=== PATIENT | female | born 1965 | race Caucasian/White ===

== ENCOUNTER → 2019-02-14 | Outpatient (CLI) | payer OTHER | LOC: CAT 08:48 | DX: J43.2 Centrilobular emphysema (principal); J84.9 Interstitial pulmonary disease, unspecified; J98.11 Atelectasis; R51 Headache; R91.8 Other nonspecific abnormal finding of lung field; R59.9 Enlarged lymph nodes, unspecified ==

== ENCOUNTER 2019-04-01 23:51 | Inpatient (IN) | payer OTHER ==
[~2019-04-01] VITALS: Ht 170.2 cm; Wt 73.9 kg
[2019-04-01 23:56] VITALS: BP 117/79
[2019-04-02] MEDS ORDERED: LYRICA 75 MG CA75 MG PO (00:08)
[2019-04-02] MEDS ORDERED: NORTRIPTYLINE H50 M3 PO (00:08)
[2019-04-02] MEDS ORDERED: AMARYL4 MG PO (00:08)
[2019-04-02] MEDS ORDERED: METFORMIN HCL500 M2 PO (00:09)
[2019-04-02] MEDS ORDERED: [UNRECOGNIZED DRUG - OTHER] (00:12)
[2019-04-02] MEDS ORDERED: SYNTHROID125 MC1 PO (00:13)
[2019-04-02] MEDS ORDERED: UNICOMPLEX M TA1 TA1 PO (00:14)
[2019-04-02 00:22] LABS: ABSOLUTE NEUTROPHILS 6.7 thou/uL (1.4-8.2); BASOPHILS 0.8 % (0.0-2.0); EOSINOPHILS 3.4 % (0.0-3.0); LYMPHOCYTES 28.6 % (24.0-44.0); MCH 28.2 pg (26.0-34.0); MCHC 33.5 g/dL (28.0-37.0); MCV 84.3 fL (80.0-100.0); MONOCYTES 5.6 % (1.0-8.0); PLATELET COUNT 293 thou/uL (150-400); POLYS 61.6 % (36.0-66.0); RBC 4.27 mil/uL (4.20-5.00); RDW 15.3 % (10.5-14.5); WBC 10.9 thou/uL (4.0-11.0)
[2019-04-02 00:28] LABS: ANION GAP 11 mmol/L (7-16); BUN 12 mg/dL (7-18); CALCIUM 9.5 mg/dL (8.5-10.1); CHLORIDE 101 mmol/L (98-107); CO2 25 mmol/L (21-32); CREATININE 0.9 mg/dL (0.6-1.0); GLUCOSE 178 mg/dL (74-106); POTASSIUM 3.7 mmol/L (3.5-5.1); SODIUM 137 mmol/L (136-145)
[2019-04-02 00:38] LABS: ALBUMIN 3.7 g/dL (3.4-5.0); SGOT 42 U/L (15-37); SGPT 45 U/L (30-65); TOTAL BILIRUBIN 0.6 mg/dL (<0.1-1.0); TOTAL PROTEIN 8.4 g/dL (6.4-8.2); TROPONIN-I <0.06 ng/mL (<0.06)
[2019-04-02 03:40] VITALS: BP 96/55
[2019-04-02] MEDS ORDERED: LIPITOR10 MG PO (03:53)
[2019-04-02 04:30] VITALS: BP 95/65
[2019-04-02 06:52] LABS: ANION GAP 11 mmol/L (7-16); BUN 11 mg/dL (7-18); CALCIUM 9.3 mg/dL (8.5-10.1); CHLORIDE 103 mmol/L (98-107); CHOLESTEROL 86 mg/dL (<200); CO2 24 mmol/L (21-32); CREATININE 0.9 mg/dL (0.6-1.0); GLUCOSE 96 mg/dL (74-106); HDL CHOLESTEROL 17 mg/dL (>40); LDL CHOLESTEROL 39 mg/dL (<100); POTASSIUM 3.9 mmol/L (3.5-5.1); SODIUM 138 mmol/L (136-145); TC:HDL 5.1 Ratio (Not establshd); TRIGLYCERIDE 153 mg/dL (<150); TROPONIN-I <0.06 ng/mL (<0.06); VLDL 31 mg/dL (<40)
--- NOTE | 2019-04-02 07:12 | NUR ---
ADMITTED FROM ER UNDER 'S CARE. AXOX4. ACCOMPANIED BY FRIEND. ADMIT WITH CHEST PAIN, HOWEVER PT DENIES CHEST PAIN UPON ARRIVAL FROM ER. SEEN BY CARLITA CARPENTER DOUGH CATCHER FOR . NO S/S ACUTE DISTRESS NOTED OR REPORTED AT THIS TIME.
[2019-04-02 07:37] VITALS: BP 85/53
--- NOTE | 2019-04-02 09:21 | EKG ---
[address] [place] [address] ELECTROCARDIOGRAM REPORT Name: DIYASUMAMONICA L Room #: 464-P [facility] IN M.R.#: [id number] ������������������ Admission: 04/02/19 ������������������ Attend Phys: Leonardo Gonzalez Discharge: ������������������ Date of : 69 Report #: [id number] ����������������������������������������������������������������� [id number] THIS REPORT FOR: //name// [facility] ED Test Date: 2019-04-02 Test Time: 00:00:10 Pat Name: MONICA KEANE Department: Room: 464 Gender: F Caretaker Grounds: JL : 1965 Requested By: Ingrid Mullins Order Number: [id number] MD: Harry Garcia Measurements Intervals [place] Rate: 107 P: -9 [place]: 176 QRS: 1 QRSD: 91 T: 43 QT: 364 QTc: 486 Interpretive Statements Sinus tachycardia Borderline prolonged QT interval No previous ECG available for comparison Electronically Signed On 04-02-2019 9:21:14 CDT by Harry Garcia [email or web address] ��������������������������������������������� <ELECTRONICALLY SIGNED> ���������������������������������������� By: Harry Garcia MD, [facility] ��������������������������������������������� 04/02/19 0921 0000 0000 Harry Garcia MD, FACC /EPI
--- NOTE | 2019-04-02 10:54 | 2DMMODE ---
[facility] [address] [address] 2 D/M-MODE ECHOCARDIOGRAM Name: MONICA KEANE Room #: 464-P [facility] IN M.R.#: [id number] ������������� Admission: 04/02/19 ������������� Attend Phys: Leonardo Hi Discharge: ��� ������������� ��� Date of : 69 Date of Service: 04/02/19 1054 �� Report #: [id number] �������� ��������������������������������������������[id number] THIS REPORT FOR: //name// APPROVED REPORT Study performed: 04/02/2019 09:18:49 EXAM: Comprehensive 2D, Doppler, and color-flow Echocardiogram Patient Location: Bedside Room #: 464 Status: routine BSA: 1.84 HR: 98 bpm BP: 85/53 mmHg Rhythm: NSR Other Information Study Quality: Adequate Risk Factors: Cardiac Risk Factors: Hyperlipidemia, DM, Smoking Indications Congestive Heart Failure Dyspnea Chest Pain 2D Dimensions IVSd: 9.01 (7-11mm) LVOT Diam: 19.00 (18-24mm) LVDd: 40.73 mm PWd: 7.99 (7-11mm) Ascending Ao: 28.16 (22-36mm) LVDs: 28.18 (25-40mm) Aortic Root: 27.28 mm LV Single Plane 4CH: 63.48 % LV Single Plane 2CH: 66.91 % Biplane EF: 65.6 % Volumes Left Atrial Volume (Systole) Single Plane 4CH: 25.01 mL Single Plane 2CH: 27.62 mL LA ESV Index: 17.00 mL/m2 Aortic Valve AoV Peak Ramses.: 1.18 m/s [facility] [address] [place] [address] 2 D/M-MODE ECHOCARDIOGRAM Name: MONICA KEANE Room #: 464-P [facility]#: [id number] ������������� Admission: 04/02/19 ������������� Attend Phys: Leonardo Hi Discharge: ��� ������������� ��� Date of : 69 Date of Service: 04/02/19 1054 �� Report #: [id number] �������� ��������������������������������������������[id number] AO Peak Gr.: 5.60 mmHg LVOT Max P.32 mmHg LVOT Max V: 0.91 m/s ALEJANDRO Vmax: 2.12 cm2 Mitral Valve E/A Ratio: 1.5 MV Decel. Time: 193.79 ms MV E Max Ramses.: 0.85 m/s MV A Ramses.: 0.58 m/s MV PHT: 56.20 ms IVRT: 55.36 ms TDI E/Lateral E': 9.44 E/Medial E': 10.63 Medial E' Ramses.: 0.08 m/s Lateral E' Ramses.: 0.09 m/s Pulmonary Valve PV Peak Ramses.: 0.86 m/s PV Peak Gr.: 3.01 mmHg Pulmonary Vein P Vein S: 0.43 m/s P Vein A: 0.24 m/s P Vein D: 0.48 m/s P Vein A Dur.: 69.2 msec P Vein S/D Ratio: 0.90 Tricuspid Valve RAP Estimate: 7.00 mmHg Left Ventricle The left ventricle is normal size. There is normal LV segmental wall motion. There is normal left ventricular wall thickness. Left ventricular systolic function is normal. The left ventricular ejection fraction is within the normal range. LVEF is 60-65%. The left ventricular diastolic function is normal. Right Ventricle The right ventricle is normal size. The right ventricular systolic function is normal. Atria The left atrium size is normal. The right atrium size is normal. Aortic Valve The aortic valve is normal in structure. No aortic regurgitation is present. There is no aortic valvular stenosis. [facility] [address] [place] [address] 2 D/M-MODE ECHOCARDIOGRAM Name: MONICA KEANE Room #: 464-P [facility] IN ..#: [id number] ������������� Admission: 04/02/19 ������������� Attend Phys: Leonardo Hi Discharge: ��� ������������� ��� Date of : 69 Date of Service: 04/02/19 1054 �� Report #: [id number] �������� ��������������������������������������������[id number] Mitral Valve The mitral valve is normal in structure. There is no mitral valve regurgitation noted. No evidence of mitral valve stenosis. Tricuspid Valve The tricuspid valve is normal in structure. Trace tricuspid regurgitation. Unable to assess PA pressure. Pulmonic Valve The pulmonary valve is normal in structure. There is no pulmonic valvular regurgitation. Great Vessels The aortic root is normal in size. IVC is normal in size and collapses >50% with inspiration. Pericardium There is no pericardial effusion. <Conclusion> The left ventricle is normal size. LVEF is 60-65%. The aortic valve is normal in structure. The mitral valve is normal in structure. The tricuspid valve is normal in structure. Trace tricuspid regurgitation. Unable to assess PA pressure. The pulmonary valve is normal in structure. There is no pericardial effusion. ��������������������������������������������� <ELECTRONICALLY SIGNED> ���������������������������������������� By: Shay Hay MD ��������������������������������������������� 04/02/19 1054 1054 1054 Shay Hay MD /INF
[2019-04-02 13:56] VITALS: BP 96/64
--- NOTE | 2019-04-02 20:00 | NUR ---
ASSUMED CARE OF PT AT APPROX 0700. VSS. MONITORED ON TELE. POC FOLLOWED. ASSESSMENT CHARTED. PT REALLY WANTS TO LEAVE. EDUCATED PT ON IMPORTANCE OF TREATMENT, PT STILL NOT HAPPY ABOUT BEING HERE BUT WILL STAY. SAYS SHE WOULD RATHER DO THINGS OUTPATIENT. UPDATED ON POC. NO COMPLAINTS OF CP. MAKING GOOD PROGRESS TOWARDS POC GOALS.
[2019-04-02 20:24] VITALS: BP 108/64
[2019-04-02] MEDS ORDERED: NORCO 5-325 TA1 EACH (20:39)
[2019-04-03 02:08] LABS: GLYCOHEMOGLOBIN (HGB A1C) 5.3 % (4.8-5.6)
[2019-04-03 04:55] VITALS: BP 87/48
[2019-04-03 07:42] VITALS: BP 95/64
--- NOTE | 2019-04-03 07:59 | NUR ---
PT AOX4 AND WAS ABLE TO GET SOME SLEEP. PT HAD NO S/S OF ACUTE DISTRESS. NO CHEST PAIN WAS REPORTED THIS SHIFT. WILL CONTINUE TO MONITOR. PT IS PROGRESSING TOWARDS DC GOALS.
[2019-04-03] MEDS ORDERED: ASPIR 8181 MG PO (12:34)
[2019-04-03] MEDS ORDERED: TOPROL XL25 MG PO (12:35)
[2019-04-03 13:18] VITALS: BP 95/64
--- NOTE | 2019-04-03 14:01 | NUR ---
Assumed pt care this am, pt had refused scheduled diagnostics (nm cardiac stress test) and stressed that she would like to be discharged today and she will continue the other test out pt. Pt also refused education on smoking cessation and was not ready to quit. Pt on fluid restritions is 1700 per day, glucose monitoring and appropriate dose on insulin given. Pt is able to ambulate from bed to toilet and around the room with ease. Denies any chest pain or discomfort. POC followed, discharge instrucitons and prescriptions given. IV removed. Pt is now dc
== END 2019-04-03 14:15 | disposition home or self-care (01) | DRG 313 ==
LOC: ER 23:51 → EROBS 04-02 02:48 → 4W 04-02 02:48 → ENTRNSPT 04-03 13:37 → EDTRNSPTSTS 04-03 13:41 → 4W 04-03 14:15
PROVIDERS: Nurse Practitioner Family; Student in an Organized Health Care Education/Training Program; ADMIT Hospitalist
DX: R07.89 Other chest pain (principal); I50.9 Heart failure, unspecified; F17.210 Nicotine dependence, cigarettes, uncomplicated; E11.9 Type 2 diabetes mellitus without complications; J43.9 Emphysema, unspecified; R91.1 Solitary pulmonary nodule; E03.9 Hypothyroidism, unspecified; K76.0 Fatty (change of) liver, not elsewhere classified; K58.9 Irritable bowel syndrome, unspecified; R16.2 Hepatomegaly with splenomegaly, not elsewhere classified; Z53.20 Procedure and treatment not carried out because of patient's decision for unspecified reasons; Z79.890 Hormone replacement therapy; Z82.49 Family history of ischemic heart disease and other diseases of the circulatory system; Z79.84 Long term (current) use of oral hypoglycemic drugs; Z79.899 Other long term (current) drug therapy; Z88.6 Allergy status to analgesic agent; Z90.49 Acquired absence of other specified parts of digestive tract
CPT/HCPCS: 10045

== ENCOUNTER 2019-07-31 17:12 | Emergency (ER) | payer OTHER ==
[~2019-07-31 17:12] MED LIST: AMARYL4 MG PO; ASPIR 8181 MG PO; LIPITOR10 MG PO; LYRICA 75 MG CA75 MG PO; METFORMIN HCL500 M2 PO; NORCO 5-325 TA1 EACH; NORTRIPTYLINE H50 M3 PO; SYNTHROID125 MC1 PO; TOPROL XL25 MG PO; UNICOMPLEX M TA1 TA1 PO; [UNRECOGNIZED DRUG - OTHER]
[2019-07-31] MEDS ORDERED: KEFLEX500 M1 PO (19:27)
[2019-07-31] MEDS ORDERED: NORCO 5-325 TA1 EAC1 PO (19:37)
[2019-07-31 20:00] VITALS: BP 100/64
== END 2019-07-31 20:00 | disposition home or self-care (01) ==
LOC: ER 17:12
DX: S81.811A Laceration without foreign body, right lower leg, initial encounter (principal); E11.9 Type 2 diabetes mellitus without complications; K58.9 Irritable bowel syndrome, unspecified; F17.210 Nicotine dependence, cigarettes, uncomplicated; Z98.890 Other specified postprocedural states; Z88.6 Allergy status to analgesic agent; Z88.5 Allergy status to narcotic agent; W22.03XA Walked into furniture, initial encounter; Y92.89 Other specified places as the place of occurrence of the external cause; Y93.89 Activity, other specified; Y99.8 Other external cause status

== ENCOUNTER 2019-08-09 12:15 | Day surgery (SDC) | payer OTHER ==
[~2019-08-09] VITALS: Ht 170.2 cm; Wt 72.6 kg
[~2019-08-09 12:15] MED LIST changes: +KEFLEX500 M1 PO; +NORCO 5-325 TA1 EAC1 PO
[2019-08-09 12:29] VITALS: BP 99/60
[2019-08-09] MEDS ORDERED: ACETAMINOPHEN325 M1 PO (13:46)
[2019-08-09] MEDS ORDERED: MIRALAX17 GM PO (13:47)
== END 2019-08-10 15:00 | disposition home or self-care (01) ==
LOC: TBA 12:15 → OR 12:15 → TBA 12:16 → OR 08-10 15:00
DX: S80.11XA Contusion of right lower leg, initial encounter (principal); E11.9 Type 2 diabetes mellitus without complications; J43.9 Emphysema, unspecified; F17.210 Nicotine dependence, cigarettes, uncomplicated; Z88.8 Allergy status to other drugs, medicaments and biological substances; Z79.82 Long term (current) use of aspirin; Z79.899 Other long term (current) drug therapy; Z98.890 Other specified postprocedural states; X58.XXXA Exposure to other specified factors, initial encounter; Y93.89 Activity, other specified; Y92.89 Other specified places as the place of occurrence of the external cause; Y99.8 Other external cause status
CPT/HCPCS: 50010; 50101; 50386; 50403; 62110; 62900; 70005

== ENCOUNTER 2019-08-11 23:28 | Emergency (ER) | payer OTHER ==
[~2019-08-11] VITALS: Ht 170.2 cm; Wt 72.6 kg
[~2019-08-11 23:28] MED LIST changes: +ACETAMINOPHEN325 M1 PO; +MIRALAX17 GM PO
[2019-08-12 00:39] VITALS: BP 107/66
== END 2019-08-12 00:49 | disposition home or self-care (01) ==
LOC: ER 23:28
DX: S80.851A Superficial foreign body, right lower leg, initial encounter (principal); E11.9 Type 2 diabetes mellitus without complications; K58.9 Irritable bowel syndrome, unspecified; F17.210 Nicotine dependence, cigarettes, uncomplicated; Z88.6 Allergy status to analgesic agent; X58.XXXA Exposure to other specified factors, initial encounter; Y93.89 Activity, other specified; Y92.89 Other specified places as the place of occurrence of the external cause; Y99.8 Other external cause status

== ENCOUNTER → 2019-08-16 | Outpatient (CLI) | payer OTHER | LOC: RAD 08:35 | DX: Z12.31 Encounter for screening mammogram for malignant neoplasm of breast (principal) ==

== ENCOUNTER 2019-10-20 21:04 | Emergency (ER) | payer OTHER ==
[~2019-10-20] VITALS: Ht 170.2 cm; Wt 73.5 kg
[2019-10-20 21:28] VITALS: BP 114/58
[2019-10-20] MEDS ORDERED: AZITHROMYCIN250 MG PO (23:11)
[2019-10-20] MEDS ORDERED: PROAIR HFA8.5 GM INH (23:11)
--- NOTE | 2019-10-21 08:06 | EKG ---
[address] [place] [address] ELECTROCARDIOGRAM REPORT Name: MONICA KEANE Room #: [facility]#: [id number] Admission: 10/20/19 Attend Phys: Discharge: 10/20/19 Date of : 69 Report #: [id number] THIS REPORT FOR: //name// [facility] ED Test Date: 2019-10-20 Test Time: 21:39:33 Pat Name: MONICA KEANE Department: Room: Gender: F Signal Repairer: : 1965 Requested By: Inna Gil Order Number: [id number] MD: Harry Garcia Measurements Intervals [place] Rate: 88 P: 42 MS: 170 QRS: -3 QRSD: 83 T: 102 QT: 423 QTc: 512 Interpretive Statements Sinus rhythm Nonspecific T wave abnormality Prolonged QT interval Compared to ECG 04/02/2019 00:00:10 Sinus tachycardia no longer present Electronically Signed On 10-21-2019 8:06:13 STOPPING BUILDER by Harry Garcia [email or web address] <ELECTRONICALLY SIGNED> By: Harry Garcia MD, [facility] 10/21/19 08 38 38 Harry Garcia MD, FACC /EPI
== END 2019-10-20 23:21 | disposition home or self-care (01) ==
LOC: ER 21:04
DX: J06.9 Acute upper respiratory infection, unspecified (principal); J90 Pleural effusion, not elsewhere classified; R07.89 Other chest pain; E11.9 Type 2 diabetes mellitus without complications; K58.9 Irritable bowel syndrome, unspecified; F17.210 Nicotine dependence, cigarettes, uncomplicated; Z88.6 Allergy status to analgesic agent; Z88.5 Allergy status to narcotic agent

== ENCOUNTER → 2019-11-14 | Outpatient (CLI) | payer OTHER ==
[~2019-11-14] MED LIST changes: +AZITHROMYCIN250 MG PO; +PROAIR HFA8.5 GM INH
== END ==
LOC: CAT 09:23
DX: J43.9 Emphysema, unspecified (principal); R91.8 Other nonspecific abnormal finding of lung field; J90 Pleural effusion, not elsewhere classified

== ENCOUNTER 2019-11-25 22:36 | Emergency (ER) | payer OTHER ==
[~2019-11-25] VITALS: Ht 170.2 cm; Wt 72.6 kg
[2019-11-25 23:18] LABS: BASOPHILS 1.2 % (0.0-2.0); EOSINOPHILS 3.3 % (0.0-3.0); HEMATOCRIT 34.6 % (37.0-47.0); LYMPHOCYTES 34.4 % (24.0-44.0); MCH 24.8 pg (26.0-34.0); MCHC 31.7 g/dL (28.0-37.0); MCV 78.4 fL (80.0-100.0); MONOCYTES 6.9 % (1.0-8.0); PLATELET COUNT 397 thou/uL (150-400); POLYS 54.2 % (36.0-66.0); RBC 4.41 mil/uL (4.20-5.00); RDW 16.2 % (10.5-14.5); WBC 9.2 thou/uL (4.0-11.0)
[2019-11-25 23:25] LABS: ANION GAP 7 mmol/L (7-16); BUN 11 mg/dL (7-18); CALCIUM 9.1 mg/dL (8.5-10.1); CHLORIDE 101 mmol/L (98-107); CO2 28 mmol/L (21-32); CREATININE 0.8 mg/dL (0.6-1.0); GLUCOSE 238 mg/dL (74-106); POTASSIUM 3.7 mmol/L (3.5-5.1); SODIUM 136 mmol/L (136-145)
[2019-11-25 23:35] LABS: TROPONIN-I <0.06 ng/mL (<0.06)
[2019-11-25 23:45] VITALS: BP 105/71
--- NOTE | 2019-11-26 10:06 | EKG ---
[place] [address] [address] [facility] [place] [address] ELECTROCARDIOGRAM REPORT Name: MONICA KEANE Room #: [facility]#: [id number] Admission: 11/25/19 Attend Phys: Discharge: 11/25/19 Date of : 69 Report #: [id number] THIS REPORT FOR: //name// [facility] ED Test Date: 2019-11-25 Test Time: 23:00:43 Pat Name: MONICA KEANE Department: Room: Gender: F Timber Bucker[facility] 1965 Requested By: Jez Calzada Order Number: [id number] MD: Harry Garcia Measurements Intervals [place] Rate: 82 P: 35 [place]: 180 QRS: 7 QRSD: 89 T: 74 QT: 388 QTc: 453 Interpretive Statements Sinus rhythm Poor R wave progression Compared to ECG 10/20/2019 21:39:33 Prolonged QT interval no longer present T-wave abnormality still present Electronically Signed On 11-26-2019 10:06:21 METAL DRILL OPERATOR by Harry Garcia [email or web address] <ELECTRONICALLY SIGNED> By: Harry Garcia MD, [facility] 11/26/19 1006 99 99 Harry Garcia MD, [facility] /EPI
== END 2019-11-25 23:50 | disposition home or self-care (01) ==
LOC: ER 22:36
PROVIDERS: Emergency Medicine
DX: J90 Pleural effusion, not elsewhere classified (principal); E11.9 Type 2 diabetes mellitus without complications; F17.210 Nicotine dependence, cigarettes, uncomplicated; Z88.6 Allergy status to analgesic agent

== ENCOUNTER → 2019-12-12 | Outpatient (CLI) | payer OTHER ==
[2019-12-12 11:18] LABS: ABSOLUTE NEUTROPHILS 5.8 thou/uL (1.4-8.2); EOSINOPHILS 2.7 % (0.0-3.0); HEMATOCRIT 39.5 % (37.0-47.0); HEMOGLOBIN 12.4 gm/dL (12.0-15.0); LYMPHOCYTES 26.4 % (24.0-44.0); MCH 24.7 pg (26.0-34.0); MCHC 31.4 g/dL (28.0-37.0); MCV 78.6 fL (80.0-100.0); MONOCYTES 5.3 % (1.0-8.0); PLATELET COUNT 326 thou/uL (150-400); POLYS 64.6 % (36.0-66.0); RBC 5.03 mil/uL (4.20-5.00); RDW 16.6 % (10.5-14.5); WBC 8.9 thou/uL (4.0-11.0)
[2019-12-12 11:30] LABS: APTT 43.2 Seconds (24.5-32.8); INR 1.1; PROTIME 11.3 Seconds (9.3-11.4)
[2019-12-12 11:36] LABS: CALCIUM 10.3 mg/dL (8.5-10.1); CREATININE 0.8 mg/dL (0.6-1.0); POTASSIUM 4.6 mmol/L (3.5-5.1)
== END ==
LOC: ULTRA 09:14
PROVIDERS: Internal Medicine Pulmonary Disease
DX: J90 Pleural effusion, not elsewhere classified (principal); R91.8 Other nonspecific abnormal finding of lung field; Z72.0 Tobacco use; G47.19 Other hypersomnia

== ENCOUNTER → 2020-01-30 | Outpatient (CLI) | payer OTHER | LOC: CAT 08:05 | DX: K76.0 Fatty (change of) liver, not elsewhere classified (principal); R16.1 Splenomegaly, not elsewhere classified; K57.30 Diverticulosis of large intestine without perforation or abscess without bleeding; J43.9 Emphysema, unspecified; R91.8 Other nonspecific abnormal finding of lung field; G47.19 Other hypersomnia; R06.83 Snoring; R53.83 Other fatigue ==

== ENCOUNTER → 2020-04-16 | Outpatient (CLI) | payer OTHER | LOC: CAT 10:03 | DX: J43.8 Other emphysema (principal); R91.8 Other nonspecific abnormal finding of lung field; N20.0 Calculus of kidney; R16.1 Splenomegaly, not elsewhere classified ==

== ENCOUNTER 2020-04-23 12:38 | Emergency (ER) | payer OTHER ==
[~2020-04-23] VITALS: Ht 167.6 cm; Wt 71.2 kg
[2020-04-23 13:58] VITALS: BP 87/51
== END 2020-04-23 13:58 | disposition home or self-care (01) ==
LOC: ER 12:38
DX: B34.9 Viral infection, unspecified (principal); E11.9 Type 2 diabetes mellitus without complications; F17.210 Nicotine dependence, cigarettes, uncomplicated; Z03.818 Encounter for observation for suspected exposure to other biological agents ruled out; Z79.899 Other long term (current) drug therapy; Z88.6 Allergy status to analgesic agent

== ENCOUNTER → 2020-05-18 | Outpatient (CLI) | payer OTHER ==
[2020-05-18 15:47] LABS: ABSOLUTE NEUTROPHILS 4.5 thou/uL (1.4-8.2); BASOPHILS 0.6 % (0.0-2.0); EOSINOPHILS 2.6 % (0.0-3.0); HEMATOCRIT 37.3 % (37.0-47.0); HEMOGLOBIN 12.4 gm/dL (12.0-15.0); LYMPHOCYTES 30.5 % (24.0-44.0); MCH 26.3 pg (26.0-34.0); MCHC 33.2 g/dL (28.0-37.0); MCV 79.3 fL (80.0-100.0); MONOCYTES 6.8 % (1.0-8.0); PLATELET COUNT 263 thou/uL (150-400); POLYS 59.5 % (36.0-66.0); RBC 4.71 mil/uL (4.20-5.00); RDW 16.7 % (10.5-14.5); WBC 7.5 thou/uL (4.0-11.0)
[2020-05-18 16:05] LABS: ALBUMIN 3.8 g/dL (3.4-5.0); ANION GAP 8 mmol/L (7-16); BUN 11 mg/dL (7-18); CALCIUM 9.6 mg/dL (8.5-10.1); CHLORIDE 103 mmol/L (98-107); CHOLESTEROL 86 mg/dL (<200); CO2 27 mmol/L (21-32); CREATININE 0.8 mg/dL (0.6-1.0); GLUCOSE 56 mg/dL (74-106); HDL CHOLESTEROL 17 mg/dL (>40); LDL CHOLESTEROL 30 mg/dL (<100); POTASSIUM 4.2 mmol/L (3.5-5.1); SGOT 30 U/L (15-37); SGPT 36 U/L (30-65); SODIUM 138 mmol/L (136-145); TC:HDL 5.1 Ratio (Not establshd); TOTAL BILIRUBIN 0.5 mg/dL (0.2-1.0); TOTAL PROTEIN 7.7 g/dL (6.4-8.2); TRIGLYCERIDE 198 mg/dL (<150); VLDL 40 mg/dL (<40)
[2020-05-19 02:06] LABS: GLYCOHEMOGLOBIN (HGB A1C) 5.8 % (4.8-5.6)
== END ==
LOC: LAB 14:56
PROVIDERS: ATTEND Family Medicine
DX: E11.69 Type 2 diabetes mellitus with other specified complication (principal); Z79.4 Long term (current) use of insulin

== ENCOUNTER → 2020-05-26 | Outpatient (CLI) | payer OTHER | LOC: LABMALL 11:19 | PROVIDERS: ATTEND Internal Medicine | DX: E03.9 Hypothyroidism, unspecified (principal) ==

== ENCOUNTER → 2020-07-09 | Outpatient (CLI) | payer OTHER ==
[2020-07-09 14:53] LABS: ABSOLUTE NEUTROPHILS 4.8 thou/uL (1.4-8.2); BASOPHILS 0.7 % (0.0-2.0); EOSINOPHILS 3.2 % (0.0-3.0); HEMATOCRIT 39.3 % (37.0-47.0); HEMOGLOBIN 12.5 gm/dL (12.0-15.0); LYMPHOCYTES 34.7 % (24.0-44.0); MCH 25.9 pg (26.0-34.0); MCHC 31.9 g/dL (28.0-37.0); MCV 81.3 fL (80.0-100.0); MONOCYTES 7.3 % (1.0-8.0); PLATELET COUNT 262 thou/uL (150-400); POLYS 54.1 % (36.0-66.0); RBC 4.83 mil/uL (4.20-5.00); RDW 15.8 % (10.5-14.5); WBC 8.9 thou/uL (4.0-11.0)
[2020-07-09 15:17] LABS: ALBUMIN 3.9 g/dL (3.4-5.0); CALCIUM 9.3 mg/dL (8.5-10.1); CREATININE 0.9 mg/dL (0.6-1.0); POTASSIUM 4.3 mmol/L (3.5-5.1); TOTAL BILIRUBIN 0.4 mg/dL (0.2-1.0); TOTAL PROTEIN 7.9 g/dL (6.4-8.2)
[2020-07-10 03:06] LABS: GLYCOHEMOGLOBIN (HGB A1C) 5.8 % (4.8-5.6)
== END ==
LOC: LABMALL 14:25
PROVIDERS: ATTEND Family Medicine
DX: E11.69 Type 2 diabetes mellitus with other specified complication (principal); Z79.4 Long term (current) use of insulin

== ENCOUNTER 2020-07-26 21:53 | Emergency (ER) | payer OTHER ==
[~2020-07-26] VITALS: Ht 170.2 cm; Wt 77.1 kg
[2020-07-26 22:55] LABS: URINE BILIRUBIN NEGATIVE (Negative); URINE BLOOD NEGATIVE (Negative); URINE CLARITY CLEAR; URINE COLOR YELLOW; URINE GLUCOSE-RANDOM* NEGATIVE (Negative); URINE KETONES NEGATIVE (Negative); URINE LEUKOCYTES-REFLEX NEGATIVE (Negative); URINE NITRITE-REFLEX NEGATIVE (Negative); URINE PROTEIN (DIPSTICK) NEGATIVE (Negative); URINE SPECIFIC GRAVITY 1.015 (1.005-1.035); URINE UROBILINOGEN 0.2 E.U./dl (0.2-1.0)
[2020-07-27 00:19] LABS: ABSOLUTE NEUTROPHILS 3.6 thou/uL (1.4-8.2); BASOPHILS 0.9 % (0.0-2.0); EOSINOPHILS 2.8 % (0.0-3.0); HEMATOCRIT 35.8 % (37.0-47.0); HEMOGLOBIN 11.7 gm/dL (12.0-15.0); MCH 26.4 pg (26.0-34.0); MCHC 32.7 g/dL (28.0-37.0); MCV 80.5 fL (80.0-100.0); MONOCYTES 8.2 % (1.0-8.0); PLATELET COUNT 237 thou/uL (150-400); POLYS 46.1 % (36.0-66.0); RBC 4.44 mil/uL (4.20-5.00); RDW 15.3 % (10.5-14.5); WBC 7.8 thou/uL (4.0-11.0)
[2020-07-27 00:27] LABS: ANION GAP 12 mmol/L (7-16); BUN 7 mg/dL (7-18); CALCIUM 9.1 mg/dL (8.5-10.1); CHLORIDE 104 mmol/L (98-107); CO2 24 mmol/L (21-32); CREATININE 0.8 mg/dL (0.6-1.0); GLUCOSE 74 mg/dL (74-106); POTASSIUM 3.9 mmol/L (3.5-5.1); SODIUM 140 mmol/L (136-145)
[2020-07-27 00:34] LABS: ALBUMIN 3.5 g/dL (3.4-5.0); DIRECT BILIRUBIN < 0.1 mg/dL (<0.1-0.2); LIPASE 180 U/L (73-393); SGOT 27 U/L (15-37); SGPT 32 U/L (30-65); TOTAL BILIRUBIN 0.4 mg/dL (0.2-1.0); TOTAL PROTEIN 7.7 g/dL (6.4-8.2)
[2020-07-27 02:22] VITALS: BP 117/82
--- NOTE | 2020-07-28 07:37 | EKG ---
[facility] [place] [place] [address] ELECTROCARDIOGRAM REPORT Name: MONICA KEANE Room #: DEP [facility]#: [id number] Admission: 07/26/20 Attend Phys: Discharge: 07/27/20 Date of : 69 Report #: [id number] THIS REPORT FOR: cc: Deedee Brown MD, Nora P. MD Lundgren,Harry Durán MD [facility] ~ THIS REPORT FOR: //name// [facility] ED Test Date: 2020-07-26 Test Time: 22:32:27 Pat Name: MONICA KEANE Department: Room: Gender: F Laboratory Tester: JACINTO : 1965 Requested By: Conor Winn Order Number: [id number] MD: Harry Garcia Measurements Intervals [place] Rate: 83 P: -27 RI: 165 QRS: 0 QRSD: 86 T: 67 QT: 373 QTc: 439 Interpretive Statements Sinus rhythm Borderline T wave abnormalities Compared to ECG 11/25/2019 23:00:43 No significant change was found Electronically Signed On 07-28-2020 7:37:41 CDT by Harry Garcia [email or web address] <ELECTRONICALLY SIGNED> By: Harry Garcia MD, [facility] 07/28/20 0737 31 31 Harry Garcia MD, [facility] /EPI
== END 2020-07-27 00:21 | disposition home or self-care (01) ==
LOC: ER 21:53
PROVIDERS: Emergency Medicine
DX: R19.7 Diarrhea, unspecified (principal); R10.84 Generalized abdominal pain; E11.9 Type 2 diabetes mellitus without complications; K58.8 Other irritable bowel syndrome; F17.210 Nicotine dependence, cigarettes, uncomplicated; Z88.5 Allergy status to narcotic agent; Z88.6 Allergy status to analgesic agent; Z79.899 Other long term (current) drug therapy; Z79.2 Long term (current) use of antibiotics

== ENCOUNTER → 2020-08-07 | Outpatient (CLI) | payer OTHER | LOC: CAT 08:22 | PROVIDERS: ATTEND Internal Medicine Pulmonary Disease | DX: J43.2 Centrilobular emphysema (principal); R91.8 Other nonspecific abnormal finding of lung field; J98.4 Other disorders of lung; Z72.0 Tobacco use ==

== ENCOUNTER 2020-08-16 23:27 | Emergency (ER) | payer OTHER ==
[~2020-08-16] VITALS: Ht 167.6 cm; Wt 68.0 kg
[2020-08-16 23:47] LABS: URINE BILIRUBIN NEGATIVE (Negative); URINE BLOOD NEGATIVE (Negative); URINE CLARITY CLEAR; URINE COLOR YELLOW; URINE GLUCOSE-RANDOM* NEGATIVE (Negative); URINE KETONES NEGATIVE (Negative); URINE LEUKOCYTES-REFLEX NEGATIVE (Negative); URINE NITRITE-REFLEX NEGATIVE (Negative); URINE PROTEIN (DIPSTICK) NEGATIVE (Negative); URINE SPECIFIC GRAVITY <= 1.005 (1.005-1.035); URINE UROBILINOGEN 0.2 E.U./dl (0.2-1.0)
[2020-08-16] MEDS ORDERED: NORCO 10-325 T1 EACH PO (23:49)
[2020-08-16] MEDS ORDERED: PREGABALIN50 MG PO (23:50)
[2020-08-16] MEDS ORDERED: LEVOTHYROXINE137 MCG PO (23:50)
[2020-08-16] MEDS ORDERED: AZATHIOPRINE50 MG PO (23:51)
[2020-08-16] MEDS ORDERED: TRULICITY1.5 MG/0.5 SUBQ (23:51)
[2020-08-16] MEDS ORDERED: VENLAFAXINE HC150 MG PO (23:51)
[2020-08-16] MEDS ORDERED: AMBIEN 5 MG TABL5 M1 PO (23:51)
[2020-08-16] MEDS ORDERED: MYCOPHENOLATE500 MG PO (23:52)
[2020-08-16] MEDS ORDERED: HYDROXYCHLOROQ200 M1 PO (23:52)
[2020-08-17 00:30] VITALS: BP 129/73
== END 2020-08-17 00:45 | disposition home or self-care (01) ==
LOC: ER 23:27
PROVIDERS: Emergency Medicine
DX: G62.9 Polyneuropathy, unspecified (principal); E11.9 Type 2 diabetes mellitus without complications; F17.210 Nicotine dependence, cigarettes, uncomplicated; Z79.82 Long term (current) use of aspirin; Z79.899 Other long term (current) drug therapy; Z88.8 Allergy status to other drugs, medicaments and biological substances; Z88.5 Allergy status to narcotic agent

== ENCOUNTER 2020-08-17 18:54 | Emergency (ER) | payer OTHER ==
[~2020-08-17] VITALS: Ht 167.6 cm; Wt 68.0 kg
[~2020-08-17 18:54] MED LIST changes: +AMBIEN 5 MG TABL5 M1 PO; +AZATHIOPRINE50 MG PO; +HYDROXYCHLOROQ200 M1 PO; +LEVOTHYROXINE137 MCG PO; +MYCOPHENOLATE500 MG PO; +NORCO 10-325 T1 EACH PO; +PREGABALIN50 MG PO; +TRULICITY1.5 MG/0.5 SUBQ; +VENLAFAXINE HC150 MG PO
[2020-08-17 19:57] VITALS: BP 108/69
== END 2020-08-17 19:57 | disposition home or self-care (01) ==
LOC: ER 18:54
DX: G57.93 Unspecified mononeuropathy of bilateral lower limbs (principal); E11.9 Type 2 diabetes mellitus without complications; F17.210 Nicotine dependence, cigarettes, uncomplicated; Z79.84 Long term (current) use of oral hypoglycemic drugs; Z79.899 Other long term (current) drug therapy; Z88.8 Allergy status to other drugs, medicaments and biological substances; Z88.5 Allergy status to narcotic agent

== ENCOUNTER 2021-03-25 02:09 | Emergency (ER) | payer OTHER ==
[~2021-03-25] VITALS: Ht 170.2 cm; Wt 69.4 kg
[2021-03-25 04:19] VITALS: BP 95/52
== END 2021-03-25 04:31 | disposition home or self-care (01) ==
LOC: ER 02:09
DX: S92.425A Nondisplaced fracture of distal phalanx of left great toe, initial encounter for closed fracture (principal); S46.811A Strain of other muscles, fascia and tendons at shoulder and upper arm level, right arm, initial encounter; S70.01XA Contusion of right hip, initial encounter; F17.210 Nicotine dependence, cigarettes, uncomplicated; Z79.899 Other long term (current) drug therapy; Z88.6 Allergy status to analgesic agent; Z88.5 Allergy status to narcotic agent; W10.8XXA Fall (on) (from) other stairs and steps, initial encounter; Y93.01 Activity, walking, marching and hiking; Y92.89 Other specified places as the place of occurrence of the external cause; Y99.9 Unspecified external cause status

== ENCOUNTER → 2021-04-01 | Outpatient (CLI) | payer OTHER | LOC: RAD 13:04 | PROVIDERS: ATTEND Internal Medicine | DX: Z12.31 Encounter for screening mammogram for malignant neoplasm of breast (principal); N64.89 Other specified disorders of breast ==

== ENCOUNTER → 2021-04-08 | Outpatient (CLI) | payer OTHER ==
[~2021-04-08] VITALS: Ht 170.2 cm; Wt 70.3 kg
[~2021-04-08] MED LIST changes: +HYDROMORPHONE ER8 MG PO
== END ==
LOC: GI
PROVIDERS: ATTEND Internal Medicine Gastroenterology
DX: J43.9 Emphysema, unspecified (principal); G47.33 Obstructive sleep apnea (adult) (pediatric); F17.210 Nicotine dependence, cigarettes, uncomplicated

== ENCOUNTER → 2021-04-08 | Outpatient (CLI) | payer OTHER | LOC: CAT 13:56 → NUC 13:56 | PROVIDERS: ATTEND Internal Medicine | DX: Z13.820 Encounter for screening for osteoporosis (principal); N20.2 Calculus of kidney with calculus of ureter; R91.1 Solitary pulmonary nodule; Z78.0 Asymptomatic menopausal state; M85.88 Other specified disorders of bone density and structure, other site; J43.2 Centrilobular emphysema ==

== ENCOUNTER → 2021-04-09 | Outpatient (CLI) | payer OTHER | LOC: ULTRA 11:25 → RAD 11:25 | PROVIDERS: ATTEND Internal Medicine | DX: N63.14 Unspecified lump in the right breast, lower inner quadrant (principal); R92.1 Mammographic calcification found on diagnostic imaging of breast ==

== ENCOUNTER → 2021-04-20 | Outpatient (CLI) | payer OTHER ==
--- NOTE | 2021-04-21 17:06 | PATH ---
[facility] [address] [place] [address] PATHOLOGY RPT PROCEDURE Name: MONICA KEANE Room #: REG CONSUELO Altamirano.#: [id number] Admission: 04/20/21 Date of : 69 Discharge: Report #: [id number] Path Case #: [id number] [facility] Accession Number: [id number] . 01 Material submitted: . breast - RIGHT BREAST MASS. Modifiers: right . 02 Diagnosis: Breast, right breast mass, ultrasound-guided needle core biopsy: - INVASIVE DUCTAL CARCINOMA, KYA GRADE III/III MEASURING 1.0 CM IN GREATEST DIMENSION IN A SINGLE CORE IN CONTIGUOUS LENGTH. (IUV:jim; 04/21/2021) MBR 04/21/2021 1249 Local . 02 Comment: Specimen type: US guided needle core biopsy Tumor site: Right breast 3:00 2cm Tumor quantitation: 1.0 cm in greatest dimension Histologic type: Invasive ductal carcinoma Histologic grade: Kya Grade III/III Tubules, nuclei and mitoses: 3, 2 and 3 respectively LVSI: Not identified Microcalcifications: Present in invasive carcinoma Markers: ER, NH, Her2/annmarie and Ki-67 Block: A1 . (IUV:motor coach chauffeur; 04/21/2021) . Co-review: Food Cashier focus was co-reviewed by Dr. Eli Quezada, who concurs with my diagnosis. Findings of this case are telephoned to Ms. Trujillo in our breast center are 11:30 a.m. on 04/21/2021. (IUV:jim; 04/21/2021) . 02 Electronically signed: . Cony Lockwood MD, Pathologist NPI- [id number] . 01 Gross description: . The specimen is received in formalin, labeled "Monica Keane, right breast 3:00-2 cm" received as 4 soft mishra-yellow tissue cores measuring up to 1.3 cm x 0.2 cm. The specimen is entirely submitted A1-A2. The specimen is removed from the patient at 1105 hours and placed in formalin at 1105 hours on Monday, April 19, 2021. The specimen is removed from formalin at 11:30pm. The specimen is in formalin for greater than 6 hours and less than 72 hours. ([facility]; 04/20/2021) AARON/AARON 04/20/[address] [address] PATHOLOGY RPT PROCEDURE Name: MONICA KEANE Room #: REG CLAtif Blackman#: [id number] Admission: 04/20/21 Date of : 69 Discharge: Report #: [id number] Path Case #: [id number] . 02 Pathologist provided ICD-10: C50.911 . 02 CPT . 325187 Specimen Comment: A courtesy copy of this report has been sent to [phone] Specimen Comment: 1574 Specimen Comment: Report sent to / DR BRUCE Performed at: [address] [facility] [address], [place], [place] [id number] MD Gatito Childs MD Phone: [phone] Performed at: [address] [facility] [address] [id number] MD Cony Lockwood MD Phone: [phone]
== END | disposition home or self-care (01) ==
LOC: BC 08:30
PROVIDERS: ATTEND Radiology Diagnostic Radiology
DX: C50.911 Malignant neoplasm of unspecified site of right female breast (principal); R92.1 Mammographic calcification found on diagnostic imaging of breast; J43.9 Emphysema, unspecified; Z98.890 Other specified postprocedural states; Z79.899 Other long term (current) drug therapy; Z20.822 Contact with and (suspected) exposure to COVID-19; Z88.8 Allergy status to other drugs, medicaments and biological substances

== ENCOUNTER 2021-05-24 17:14 | Emergency (ER) | payer OTHER ==
[~2021-05-24] VITALS: Ht 167.6 cm; Wt 72.1 kg
[2021-05-24 17:17] VITALS: BP 125/63
[2021-05-24] MEDS ORDERED: MEDROLDOSEPACK PO (18:14)
== END 2021-05-24 18:15 | disposition home or self-care (01) ==
LOC: ER 17:14
DX: S46.811A Strain of other muscles, fascia and tendons at shoulder and upper arm level, right arm, initial encounter (principal); E11.9 Type 2 diabetes mellitus without complications; I10 Essential (primary) hypertension; E78.5 Hyperlipidemia, unspecified; J44.9 Chronic obstructive pulmonary disease, unspecified; E03.9 Hypothyroidism, unspecified; F17.210 Nicotine dependence, cigarettes, uncomplicated; Z88.6 Allergy status to analgesic agent; Z88.5 Allergy status to narcotic agent; Z79.899 Other long term (current) drug therapy; X50.1XXA Overexertion from prolonged static or awkward postures, initial encounter; Y93.89 Activity, other specified; Y92.89 Other specified places as the place of occurrence of the external cause; Y99.9 Unspecified external cause status

== ENCOUNTER 2021-06-04 08:03 | Day surgery (SDC) | payer OTHER ==
[~2021-06-04] VITALS: Ht 167.6 cm; Wt 71.2 kg
--- NOTE | ~2021-06-04 | O ---
[facility] [place] [place] [address] OPERATIVE REPORT Name: MONICA KEANE Room #: [facility] Hiral#: [id number] Admission: 06/04/21 Attend Phys: Cristiane Pederson DO Discharge: 06/04/21 Date of : [birth year] Report #: [id number] THIS REPORT FOR: cc: Maria E Varner MD, Stephanie B. MD Fisher,Cristiane Guevara DO ~ DATE OF SERVICE: 06/04/2021 PREOPERATIVE DIAGNOSIS: Right breast invasive ductal carcinoma. POSTOPERATIVE DIAGNOSIS: Right breast invasive ductal carcinoma. PROCEDURES: 1. Right breast lumpectomy with wire localization. 2. Right axillary sentinel lymph node biopsy with technetium 99 and Lymphazurin blue dye. SURGEON: Cristiane Pederson DO ANESTHESIA: General endotracheal. SPECIMENS: 1. Right breast lumpectomy (short stitch superior, long stitch lateral, double stitch anterior). 2. Additional lateral margin (stitch on new margin). 3. Right axillary sentinel lymph node #1. 4. Right axillary sentinel lymph node #2. ESTIMATED BLOOD LOSS: 25 mL. COMPLICATIONS: There was a small hole noted in the Neoprobe plastic cover upon completion of the procedure. INDICATIONS FOR PROCEDURE: The patient is a 56-year-old female who was seen and evaluated in the office for a right breast invasive ductal carcinoma. The patient was discussed the procedure including risks, benefits and alternatives. All questions were answered to the patient's satisfaction. Informed consent was obtained. DESCRIPTION OF PROCEDURE: After the patient was brought back to the operating room and placed in supine position, general anesthesia was induced. SCDs were placed on bilateral extremities and prophylactic antibiotics were administered. Next, after a timeout was performed, the right breast was prepped and draped in the usual sterile fashion. A curvilinear incision was made along the medial aspect of the right nipple for a hidden scar lumpectomy technique. Next, dissection was carried down through subcutaneous tissues using Bovie cautery. [address] [address] OPERATIVE REPORT Name: MONICA KEANE Room #: [facility] MSkylar.#: [id number] Admission: 06/04/21 Attend Phys: Cristiane Pederson DO Discharge: 06/04/21 Date of : 69 Report #: [id number] There was a palpable mass present along the needle and wire that was placed preoperatively. This was palpated and dissection was carried out circumferentially with approximately 1 cm tissue margin. I was able to visually inspect the distal curved end of the wire. Therefore, an additional layer of tissue was removed. This was along the anterior inferior medial aspect of the specimen. The specimen was then circumferentially dissected free. The wire was grasped and the needle was removed, and the wire from the level of the skin was then placed within the wound. Once the specimen was circumferentially dissected, it was sent to radiology with the above suture markings. The radiologist did call and confirm that it did appear that the specimen contained both the clip as well as all of the atypical calcifications consistent with the mass on imaging. At this time, hemostasis was achieved in the wound. The wound was irrigated and a damp Ray-Keith was then placed within the wound. Our gloves and instruments then were exchanged for clean instruments and attention was then turned towards the right axilla. Just prior to prepping the patient, Lymphazurin blue was placed around the right areola in the 12, 3, 6, and 9 o'clock positions, and this was massaged for approximately 5 minutes prior to prepping the patient. Using a Neoprobe, gamma probe, the technetium 99 was traced to the axilla. There were low numbers within the axilla; however, a 4 cm incision was created along the inferior axillary hairline. Dissection was carried down through subcutaneous tissues using Bovie cautery as well as dissection with a Chen clamp. The axillary fat pad was entered, and finger palpation was performed. There was a small palpable lymph node that was identified and was removed. Upon reviewing the specimen, there did appear to be 2 lymph nodes in the specimen, and therefore, the larger was counted as sentinel lymph node #1 and the smaller was sentinel lymph node #2. [place] lymph node #1 target measure on the Neoprobe was 11:52 and sentinel lymph node #2 was 11:30. At this time, the axilla was again probed. There was no additional lymph node that was either blue or lit up with the probe. Finger palpation without evidence of further palpable lymph nodes. At this time, the axilla was copiously irrigated with saline. Hemostasis was noted to be achieved. The axillary incision was closed in a layered fashion using 3-0 Vicryl and 4-0 Monocryl in a subcuticular manner. Dermabond was applied for sterile dressing. Attention was then turned towards the breast incision. Of note, there were enlarged ducts with thick white secretions upon dissection of the specimen. The wound was inspected and noted to be hemostatic with no residual ductal fluid within the wound. At this time, the wound was then closed in a similar layered fashion with 3-0 Vicryl and 4-0 Monocryl and Dermabond was applied to this incision as well. All sponge, needle and instrument count was reported as correct x 2 at the end of the case. Upon removing the probe cover from the Neoprobe, the recovery assistant did note a slight amount of blood on the probe itself. Along the back table, we did place water within the probe cover, and there was noted to be a pinpoint opening at the tip of the probe cover with a leaking through the plastic. I will send home 24 hours of antibiotics for the patient and the patient's was notified of these findings. At this time, the [facility] [address] [place] [address] OPERATIVE REPORT Name: MONICA KEANE Room #: [facility] Evelia.#: [id number] Admission: 06/04/21 Attend Phys: Cristiane Pederson DO Discharge: 06/04/21 Date of : 69 Report #: [id number] patient was then awakened from anesthesia and taken to the recovery room in stable condition prior to discharge home. By: [id number] 1546 Cristiane Pederson DO /nt
[~2021-06-04 08:03] MED LIST changes: +IRON325 M1 PO; +MEDROLDOSEPACK PO; +METOPROLOL SUCC25 M1 PO; +VITAMIN B COMP1 EACH PO; +VITAMIN C500 M2 PO
--- NOTE | 2021-06-04 09:11 | EKG ---
[address] [address] ELECTROCARDIOGRAM REPORT Name: MONICA KEANE Room #: 150-5 [facility].R.#: [id number] Admission: 06/04/21 Attend Phys: Cristiane Pederson DO Discharge: Date of : 69 Report #: [id number] [facility] Test Date: 2021-06-04 Test Time: 08:43:58 Pat Name: MONICA KEANE Department: Room: 150 5 Gender: F Investment Consultant: ABRAN : 1965 Requested By: Cristiane Pederson Order Number: [id number] MD: Harry Garcia Measurements Intervals [place] Rate: 65 P: 49 CA: 196 QRS: 9 QRSD: 87 T: 31 QT: 414 QTc: 431 Interpretive Statements Sinus rhythm Normal tracing Compared to ECG 07/26/2020 22:32:27 T-wave abnormality no longer present Electronically Signed On 06-04-2021 9:10:50 CDT by Harry Garcia [email or web address] <ELECTRONICALLY SIGNED> By: Harry Garcia MD, [facility] 06/04/2110 2 Harry Garcia MD, [facility] /EPI
[2021-06-04 09:42] VITALS: BP 95/61
[2021-06-04] MEDS ORDERED: NORCO5 PO (14:55)
[2021-06-04] MEDS ORDERED: KEFLEX250 MG PO (14:57)
[2021-06-04 15:04] VITALS: BP 95/61
--- NOTE | 2021-06-09 14:10 | PATH ---
[facility] [address] [place] [address] PATHOLOGY RPT PROCEDURE Name: MONICA KEANE Room #: DEP [facility] M.R.#: [id number] Admission: 06/04/21 Date of : 69 Discharge: 06/04/21 Report #: [id number] Path Case #: [id number] [facility] Accession Number: [id number] . 01 Material submitted: . PART A: breast - RIGHT BREAST LUMPECTOMY. Modifiers: right PART B: breast - ADDITIONAL LATERAL MARGIN-SUTURE ULLOA NEW MARGIN. Modifiers: right, lateral PART C: lymph node - RIGHT AXILLARY SENTINEL LYMPH NODE. Modifiers: right, axilla PART D: lymph node - RIGHT AXILLARY SENTINEL LYMPH NODE. Modifiers: right, axilla . 01 Clinical history: . RIGHT BREAST CANCER LUMPECTOMY SJ BIOPSY SENTINEL NODE SJ FOR A- SHORT SUTURE SUPERIOR;LONG STITCH LATERAL;DOUBLE STITCH ANTERIOR . 02 Diagnosis: A. Breast, right breast, lumpectomy: - INVASIVE, MODERATELY DIFFERENTIATED DUCTAL ADENOCARCINOMA, KYA GRADE II MEASURING 13 MM IN GREATEST DIMENSION. - Background breast tissue showing proliferative fibrocystic changes associated with dilated ducts, columnar cell hyperplasia, extensive adenosis, apocrine metaplasia, as well as calcifications within benign ducts. - Margins of resection narrowly free of invasive malignancy; closest anterior margin is less than 0.2 mm away with interpretation significantly limited by cautery effect on tumor cells (see comment). . B. Breast, additional lateral margin, re-excision: - Benign breast tissue with proliferative fibrocystic changes including dilated ducts, adenosis, as well as calcifications. - Negative for malignancy. . C. Lymph node (1), right axillary sentinel lymph node #1, biopsy: - Reactive lymph node without macrometastases. - Properly controlled AE1/AE3 (performed on block C1) showing no isolated tumor cells or micrometastases (0/1). . D. Lymph node (1), right axillary sentinel lymph node #2, biopsy: - Reactive lymph node without macrometastases. - Properly controlled AE1/AE3 (performed on block D1) showing no isolated tumor cells or micrometastases (0/1). . (IUV:pit; 06/08/2021) . [address] [address] PATHOLOGY RPT PROCEDURE Name: MONICA KEANE Room #: DEP [facility] M..#: [id number] Admission: 06/04/21 Date of : 69 Discharge: 06/04/21 Report #: [id number] Path Case #: [id number] . Surgical Pathology Cancer Case Summary . Protocol posting date: December 2019 . INVASIVE CARCINOMA OF THE BREAST: . . Specimen Identification Procedure ___ Excision (less than total mastectomy) . Specimen Laterality ___ Right . Tumor Site: Right breast mass . Tumor Size ___ Greatest dimension of largest invasive focus >1 mm (millimeters): 13 mm . Histologic Type ___ Invasive carcinoma of no special type (ductal, not otherwise specified) . Histologic Grade (Kya Histologic Score) Glandular (Acinar)/Tubular Differentiation ___ Score 3 (<10% of tumor area forming glandular/tubular structures) Nuclear Pleomorphism ___ Score 2 (cells larger than normal with open vesicular nuclei, visible nucleoli, and moderate variability in both size and shape) Mitotic Rate ___ Score 1 (=3 mitoses per mm2) . Tumor Focality ___ Single focus of invasive carcinoma . Ductal Carcinoma In Situ (DCIS) ___ Present, focal ___ Negative for extensive intraductal component (EIC) Architectural Patterns ___ Cribriform ___ Grade II (intermediate) . Tumor Extension Skin and nipple are not present No skeletal muscle is present . [address] [address] PATHOLOGY RPT PROCEDURE Name: MONICA KEANE Room #: DEP [facility].#: [id number] Admission: 06/04/21 Date of : 69 Discharge: 06/04/21 Report #: [id number] Path Case #: [id number] Margins . Invasive Carcinoma Margins ___ Uninvolved by invasive carcinoma Distance from closest margin (millimeters):less than 0.2 mm Specify closest margin: anterior . DCIS Margins ___ Uninvolved by DCIS (required only if residual DCIS is present in specimen) Distance from closest margin (millimeters): 2 mm Specify closest margin: lateral . . Regional Lymph Nodes ___ Uninvolved by tumor cells Number of Lymph Nodes Examined: 2 Number of [place] Nodes Examined:2 . Treatment Effect ___ No known presurgical therapy . Lymphovascular Invasion ___ Not identified . Dermal Lymphovascular Invasion ___ Not identified . Pathologic Stage Classification (pTNM, AJCC 8th Edition) Note: Reporting of pT, pN, and (when applicable) pM categories is based on information available to the pathologist at the time the report is issued. . . Primary Tumor (Invasive Carcinoma) (pT) ___ pT1c: Tumor >10 mm but =20 mm in greatest dimension . Category (pN) ___ (sn): [place] node(s) evaluated ___ pN0: No regional lymph node metastasis identified . Distant Metastasis (pM) (required only if confirmed pathologically in this case) ___ pMx: Unknown . Clinical History The current clinical/radiologic breast findings for which this surgery is performed include: ___ Radiologic finding [address] [address] PATHOLOGY RPT PROCEDURE Name: MONICA KEANE Room #: DEP [facility] Juancarlos.Ismael#: [id number] Admission: 06/04/21 Date of : 69 Discharge: 06/04/21 Report #: [id number] Path Case #: [id number] ___ Mass QTP 06/09/2021 1036 Local . 02 Comment: Examination shows invasive ductal carcinoma present within the A3, A4, as well as A5 blocks in close association with the biopsy cavity changes. Focally, moderate chronic inflammation along with tumor is identified with cautery as well as ink indicating the anterior margin. A properly controlled AE1/AE3 immunohistochemical stain is performed on block A3 and it shows no definitive tumor cells at ink supporting a negative margin. The invasive ductal carcinoma; however, is less than 1 mm away from this anterior margin. The medial margin is 4 mm away and the lateral is 2 mm away. The ductal carcinoma in situ is identified focally, and it is 2 mm away from the lateral margin as well. . Dr. Eli Quezada has seen a charter representative focus with the tumor cells associated with the margin and concurs with my interpretation. . . AE1/AE3 performed on blocks C1 and D1 - Negative for isolated tumor cells, micrometastases as well as macrometastases. (IUV:pit; 06/08/2021) . 02 Electronically signed: . Cony Lockwood MD, Pathologist NPI- [id number] . 01 Gross description: . A. Fixative: Formalin Labeled: Right breast lumpectomy, short superior, long lateral, double anterior Specimen received: Oriented lumpectomy with wire localization Oriented: Short superior, long lateral, double anterior Weight: 11 g Dimensions: 3.7 cm superior to inferior, 3.0 cm medial to lateral, 2.4 cm anterior to posterior . The specimen is inked as follows: superior-red inferior-blue anterior-green posterior-black lateral-orange medial-yellow . Sectioned from: Superior to inferior Number of slices: [address] [address] PATHOLOGY RPT PROCEDURE Name: MONICA KEANE Room #: DEP [facility].#: [id number] Admission: 06/04/21 Date of : 69 Discharge: 06/04/21 Report #: [id number] Path Case #: [id number] Lesion: 1.3 x 1.0 x 0.9 cm Lesion location: Slices 3 through 5 . Lesion to margins: 0.7 cm to superior 1.9 cm to inferior Grossly abuts anterior 0.4 cm to posterior 0.3 cm to lateral 0.5 cm to medial . Biopsy clip: Identified in slice 3 Uninvolved breast parenchyma: Bright yellow fibrofatty . The specimen is submitted entirely from superior to inferior aspects in cassettes A1 through A10, with closest margin submitted in cassette A3. . The specimen is removed from the patient at 1327 and placed in formalin at 1350 on 06/04/2021. The specimen is removed from formalin at 1850 on 06/06/2021. The specimen is in formalin for greater than 6 hours and less than 72 hours. . B. Fixative: Formalin Labeled: Additional lateral margin, suture ulloa new margin Specimen received: Partially oriented lumpectomy Weight: 1 g Oriented: A single suture designating the new lateral margin Dimensions: 1.9 x 1.3 x 0.8 cm New margin inked: Black . Serially sectioned and entirely submitted in B1 and B2. . The specimen is removed from the patient at 1332 and placed into formalin at 1411 on 06/04/2021. The specimen is removed from formalin at 1850 on 06/06/2021. The total formalin fixation time is between 6 hours and 72 hours. . C. The specimen is received in formalin, labeled "Monica Keane, right axillary sentinel lymph node #1, not blue, count 1152". Received is a segment of bright yellow lobulated tissue measuring 1.8 x 1.3 x 0.6 cm in greatest dimensions. Sectioning reveals a single lymph node measuring 1.3 cm. The lymph node is bisected and entirely submitted in cassette C1. Immunohistochemical stains are ordered. . D. The specimen is received in formalin, labeled "Monica Keane, right axillary sentinel lymph node #2, not blue, count 1130". Received is a segment of bright yellow lobulated tissue measuring 2.0 x 1.0 x 0.5 cm in greatest dimensions. Sectioning reveals a single lymph node measuring 1.0 [facility] [address] [place] [address] PATHOLOGY RPT PROCEDURE Name: MONICA KEANE Room #: DEP [facility]..#: [id number] Admission: 06/04/21 Date of : 69 Discharge: 06/04/21 Report #: [id number] Path Case #: [id number] cm. The lymph node is bisected and entirely submitted in cassette D1. Immunohistochemical stains are ordered. (CAA; 06/05/2021) QAC/QAC 06/05/2021 1835 Local . 02 Pathologist provided ICD-10: C50.911, N60.11, N60.21, N60.81 . 02 CPT . 176242, 515649, 126443, 193108, [id number] Specimen Comment: A courtesy copy of this report has been sent to [phone], [phone] Specimen Comment: [phone] Specimen Comment: Report sent to / DR BRUCE Performed at: [address], [place], [place] [id number] MD Gatito Childs MD Phone: [phone] Performed at: [address] [id number] MD Cony Lockwood MD Phone: [phone]
== END 2021-06-04 15:40 | disposition home or self-care (01) ==
LOC: OR 08:03 → TBA 08:03 → OR 12:45
PROVIDERS: ATTEND Surgery
DX: C50.911 Malignant neoplasm of unspecified site of right female breast (principal); N60.11 Diffuse cystic mastopathy of right breast; N60.21 Fibroadenosis of right breast; N60.81 Other benign mammary dysplasias of right breast; R92.1 Mammographic calcification found on diagnostic imaging of breast; I10 Essential (primary) hypertension; E78.5 Hyperlipidemia, unspecified; E11.9 Type 2 diabetes mellitus without complications; E03.9 Hypothyroidism, unspecified; J44.9 Chronic obstructive pulmonary disease, unspecified; F32.9 Major depressive disorder, single episode, unspecified; G47.30 Sleep apnea, unspecified; F17.210 Nicotine dependence, cigarettes, uncomplicated; Z98.890 Other specified postprocedural states; Z79.899 Other long term (current) drug therapy; Z90.710 Acquired absence of both cervix and uterus; Z87.19 Personal history of other diseases of the digestive system; Z20.822 Contact with and (suspected) exposure to COVID-19
CPT/HCPCS: 50010; 50101; 50386; 50403; 51301; 52190; 54118; 56524; 56526; 56668; 62110; 62900; 70005

== ENCOUNTER 2021-07-15 09:43 | Emergency (ER) | payer OTHER ==
[~2021-07-15] VITALS: Ht 167.6 cm; Wt 73.5 kg
[~2021-07-15 09:43] MED LIST changes: +KEFLEX250 MG PO; +NORCO5 PO
[2021-07-15 09:44] VITALS: BP 114/56
== END 2021-07-15 10:57 | disposition home or self-care (01) ==
LOC: ER 09:43
DX: M79.672 Pain in left foot (principal); E11.9 Type 2 diabetes mellitus without complications; I10 Essential (primary) hypertension; E78.5 Hyperlipidemia, unspecified; J44.9 Chronic obstructive pulmonary disease, unspecified; G62.9 Polyneuropathy, unspecified; E03.9 Hypothyroidism, unspecified; F32.9 Major depressive disorder, single episode, unspecified; F17.210 Nicotine dependence, cigarettes, uncomplicated; Z90.710 Acquired absence of both cervix and uterus; Z98.890 Other specified postprocedural states; Z79.891 Long term (current) use of opiate analgesic; Z79.1 Long term (current) use of non-steroidal anti-inflammatories (NSAID); Z79.899 Other long term (current) drug therapy; Z88.5 Allergy status to narcotic agent; Z88.6 Allergy status to analgesic agent; W18.39XA Other fall on same level, initial encounter; Y93.89 Activity, other specified; Y92.89 Other specified places as the place of occurrence of the external cause; Y99.8 Other external cause status

== ENCOUNTER 2021-11-16 22:49 | Emergency (ER) | payer OTHER ==
[~2021-11-16] VITALS: Ht 167.6 cm; Wt 73.9 kg
[2021-11-16 23:52] VITALS: BP 109/68
== END 2021-11-17 | disposition home or self-care (01) ==
LOC: ER 22:49
DX: S51.012A Laceration without foreign body of left elbow, initial encounter (principal); S70.02XA Contusion of left hip, initial encounter; E11.9 Type 2 diabetes mellitus without complications; I10 Essential (primary) hypertension; E78.5 Hyperlipidemia, unspecified; J44.9 Chronic obstructive pulmonary disease, unspecified; E03.9 Hypothyroidism, unspecified; F17.210 Nicotine dependence, cigarettes, uncomplicated; Z88.6 Allergy status to analgesic agent; Z88.5 Allergy status to narcotic agent; Z79.899 Other long term (current) drug therapy; W18.30XA Fall on same level, unspecified, initial encounter; Y93.89 Activity, other specified; Y92.098 Other place in other non-institutional residence as the place of occurrence of the external cause; Y99.9 Unspecified external cause status

== ENCOUNTER 2021-11-24 12:07 | Emergency (ER) | payer OTHER ==
[~2021-11-24] VITALS: Ht 167.6 cm; Wt 70.8 kg
[2021-11-24 12:10] VITALS: BP 91/64
== END 2021-11-24 12:31 | disposition home or self-care (01) ==
LOC: ER 12:07
DX: S51.012D Laceration without foreign body of left elbow, subsequent encounter (principal); E11.9 Type 2 diabetes mellitus without complications; I10 Essential (primary) hypertension; E78.5 Hyperlipidemia, unspecified; J44.9 Chronic obstructive pulmonary disease, unspecified; G62.9 Polyneuropathy, unspecified; F32.9 Major depressive disorder, single episode, unspecified; E03.9 Hypothyroidism, unspecified; F17.210 Nicotine dependence, cigarettes, uncomplicated; Z90.710 Acquired absence of both cervix and uterus; Z98.890 Other specified postprocedural states; Z86.718 Personal history of other venous thrombosis and embolism; Z79.891 Long term (current) use of opiate analgesic; Z79.899 Other long term (current) drug therapy; Z79.1 Long term (current) use of non-steroidal anti-inflammatories (NSAID); Z88.5 Allergy status to narcotic agent; Z88.8 Allergy status to other drugs, medicaments and biological substances; X58.XXXD Exposure to other specified factors, subsequent encounter

== ENCOUNTER → 2022-01-03 | Outpatient (CLI) | payer OTHER | LOC: BC 12-29 11:31 | PROVIDERS: ATTEND Internal Medicine Hematology & Oncology | DX: C50.911 Malignant neoplasm of unspecified site of right female breast (principal); R92.8 Other abnormal and inconclusive findings on diagnostic imaging of breast ==

== ENCOUNTER 2022-01-19 04:15 | Emergency (ER) | payer OTHER ==
[~2022-01-19] VITALS: Ht 167.6 cm; Wt 70.8 kg
[2022-01-19] MEDS ORDERED: ALEVE220 M1 PO (05:42)
[2022-01-19 06:29] VITALS: BP 114/77
== END 2022-01-19 06:30 | disposition home or self-care (01) ==
LOC: ER 04:15
DX: S90.31XA Contusion of right foot, initial encounter (principal); I10 Essential (primary) hypertension; E78.5 Hyperlipidemia, unspecified; J44.9 Chronic obstructive pulmonary disease, unspecified; E11.40 Type 2 diabetes mellitus with diabetic neuropathy, unspecified; F32.9 Major depressive disorder, single episode, unspecified; E03.9 Hypothyroidism, unspecified; F17.210 Nicotine dependence, cigarettes, uncomplicated; Z90.710 Acquired absence of both cervix and uterus; Z98.890 Other specified postprocedural states; Z79.891 Long term (current) use of opiate analgesic; Z79.899 Other long term (current) drug therapy; Z88.5 Allergy status to narcotic agent; Z88.6 Allergy status to analgesic agent; W17.89XA Other fall from one level to another, initial encounter; Y93.89 Activity, other specified; Y92.89 Other specified places as the place of occurrence of the external cause; Y99.8 Other external cause status